=== PATIENT | male | born 1945 | race Caucasian/White ===

== ENCOUNTER 2017-02-02 14:52 | Inpatient (IN) | payer MEDICARE ==
[~2017-02-02] VITALS: Ht 185.4 cm; Wt 97.5 kg
[~2017-02-02 14:52] MED LIST: ASCORBIC ACID500 MG PO; CELEXA40 MG PO; FLOMAX0.4 MG PO; GLUCOSAMINE & C1 CAP PO; LEVAQUIN PREMI750 MG IV; LEVAQUIN750 MG PO; MULTI-DAY VITAM1 TAB PO; PRILOSEC20 MG PO; TRANXENE T-TAB7.5 MG PO; VITAMIN B-1250 MCG PO; ZESTORETIC 20/21 TAB PO; ZOCOR40 MG PO
[2017-02-02 16:45] LABS: BASOPHILS 0 % (0-2); EOSINOPHILS 1.3 % (0-7); HEMATOCRIT 33.7 % (42.0-54.0); HEMOGLOBIN 10.9 g/dL (13.5-17.5); LYMPHOCYTES 17.3 % (15-50); MCH 28.2 pg (26.0-34.0); MCHC 32.3 g/dL (31.0-37.0); MCV 87.1 fL (80.0-100.0); MONOCYTES 7.1 % (2-11); NEUTROPHILS 74.3 % (40-80); PLATELET COUNT 201 10x3/uL (130-400); RBC 3.87 10x6/uL (4.20-6.10); RDW 13.3 % (11.5-14.5); WBC 5.5 10x3/uL (4.8-10.8)
[2017-02-02 16:57] LABS: APTT 25.6 SECONDS (22.8-39.4); INR 0.93 (0.85-1.17); PROTIME 12.3 SECONDS (11.6-15.0)
[2017-02-02 17:00] LABS: ALBUMIN 3.2 g/dL (3.4-5.0); ANION GAP 12.7 mmol/L (8-16); BILIRUBIN - TOTAL 0.26 mg/dL (0.2-1.3); CALCIUM 8.7 mg/dL (8.5-10.1); CARBON DIOXIDE 25.6 mmol/L (21.0-32.0); CREATININE - SERUM 1.7 mg/dL (0.6-1.3); POTASSIUM - SERUM 4.3 mmol/L (3.5-5.1); PROTEIN - SERUM 6.5 g/dL (6.4-8.2)
--- NOTE | 2017-02-02 18:40 | NUR ---
RECEIVED TO ROOM 2231 FROM ER VIA STRETCHER. TRANSFERRED TO BED PER NURSES AND CNAs.
[2017-02-02 19:00] VITALS: BP 134/80
[2017-02-02 20:20] VITALS: BP 134/80; BMI 28.4
[2017-02-02] MEDS ORDERED: FISH OIL 1,0001 CA1 PO (20:47)
[2017-02-03 04:00] VITALS: BP 152/87
--- NOTE | 2017-02-03 07:05 | NUR ---
PT REC'D FROM [facility]. RESTING IN BED WATCHING TV. AAOX4. L LEG SHORTENED AND EXTERNALLY ROTATED. RATING CURRENT PAIN IN L HIP 4/10. LUNG SOUNDS CLEAR AND EQUAL BILAT. BED LOW, CALL LIGHT IN REACH, DENIES NEEDS. CPOC.
[2017-02-03 08:22] VITALS: BP 147/81
--- NOTE | 2017-02-03 08:30 | NUR ---
PRN PAIN MEDICATION ADMINISTERED PER PT COMPLAINTS OF 6/10 L HIP PAIN. WILL REASSSESS. BRAVO CATHETER DRAINING CLEAR, YELLOW, URINE TO GRAVITY. BED LOW, CALL LIGHT IN REACH, DENIES NEEDS. CPOC.
--- NOTE | 2017-02-03 10:41 | NUR ---
SPOKE WITH DR. NEELY ON PHONE ABOUT PT SURGERY SCHEDULE. STATED IT WOULD BE TOMORROW, AND THAT HE TOLD THE ER THAT TO BEGIN WITH. AT BEDSIDE AND UPDATE PROVIDED.
--- NOTE | 2017-02-03 12:32 | NUR ---
PT AOX4 RESP EVEN AND NONLABORED IV TO LEFT FOREARM PATENT AND INTACT. PT HERE FOR LEFT HIP FRACTURE REPAIR AND TREATMENT FOR THIS VISIT. URINARY BRAVO PATENT AND INTACT. FAMILY AT BEDSIDE. SRX2 CALL LIGHT WITHIN REACH WILL CONTINUE TO MONITOR
--- NOTE | 2017-02-03 12:35 | NUR ---
PRN PAIN MEDICATION ADMINISTERED PER PT COMPLAINTS OF 5/10 L HIP PAIN. WILL REASSESS. REPOSITIONED UP IN BED. BED LOW, CALL LIGTH IN REACH, FAMILY AT BEDSIDE. CPOC.
[2017-02-03 14:04] VITALS: BP 150/80
[2017-02-03 16:45] VITALS: BP 170/87
--- NOTE | 2017-02-03 18:03 | NUR ---
CONSENTS DISCUSSED AND SIGNED WITH PT. NO QUESTIONS OR CONCERNS VOICED AT THIS TIME.
[2017-02-03 20:22] VITALS: BP 157/72
--- NOTE | 2017-02-03 21:36 | NUR ---
PT C/O LEFT HIP PAIN RATING 9/10 ON PAIN SCALE WAS MEDICATED WITH DILAUDID 1 MG PER ORDERS. C/L IN REACH AT BEDSIDE.
--- NOTE | 2017-02-03 22:32 | NUR ---
PATIENT RESTING IN BED WITH NO VISIBLE SIGNS OF DISTRESS. BED IN LOWEST POSITION AND CALL LIGHT WITHIN REACH.
[2017-02-04] VITALS: BP 141/83
[2017-02-04 04:00] VITALS: BP 162/87
[2017-02-04 06:19] LABS: BASOPHILS 0.2 % (0-2); EOSINOPHILS 3.4 % (0-7); HEMATOCRIT 34.9 % (42.0-54.0); HEMOGLOBIN 11.6 g/dL (13.5-17.5); IMMATURE GRANULOCYTES 0.2 % (0-5); MCH 28.9 pg (26.0-34.0); MCHC 33.2 g/dL (31.0-37.0); MCV 86.8 fL (80.0-100.0); MEAN PLATELET VOLUME 9.4 fL (7.4-10.4); MONOCYTES 10.8 % (2-11); NEUTROPHILS 68.4 % (40-80); PLATELET COUNT 199 10x3/uL (130-400); RBC 4.02 10x6/uL (4.20-6.10); RDW 13.4 % (11.5-14.5); WBC 5.4 10x3/uL (4.8-10.8)
[2017-02-04 06:37] LABS: INR 1.07 (0.85-1.17); PROTIME 13.7 SECONDS (11.6-15.0)
[2017-02-04 06:42] LABS: ALBUMIN 2.9 g/dL (3.4-5.0); ANION GAP 12.7 mmol/L (8-16); BILIRUBIN - TOTAL 0.71 mg/dL (0.2-1.3); CALCIUM 8.4 mg/dL (8.5-10.1); CARBON DIOXIDE 26.2 mmol/L (21.0-32.0); CREATININE - SERUM 1.5 mg/dL (0.6-1.3); POTASSIUM - SERUM 3.9 mmol/L (3.5-5.1); PROTEIN - SERUM 6.6 g/dL (6.4-8.2)
--- NOTE | 2017-02-04 07:45 | NUR ---
PT ASSESSMENT COMPLETE AWAKE AND ALERT ORNETED X 3 LUNGS CLAER BILAT. NOTED HIP FX WITH ORDERS FOR OR TODAY WITH DR NEELY REMAINS NPO AT THIS TIME. FAMILY AT SIDE HAS SHELLY NOTED PATENT TO CLEAR YELLOW URINE.
[2017-02-04 08:44] VITALS: BP 161/85
[2017-02-04 12:00] VITALS: BP 152/74
--- NOTE | 2017-02-04 13:26 | NUR ---
PT SEEN FOR SUPERVISOR HAND SILVERING NOTE. NPO FOR SURGERY TO LEFT HIP. PEDAL PULSE PRESENT. FAMILY AT BEDSIDE
[2017-02-04 13:53] VITALS: Ht 185.4 cm; Wt 97.5 kg
--- NOTE | 2017-02-04 15:25 | NUR ---
GROOMING SALON MANAGER INITIATED EARLIER THIS SHIFT FOR PAIN CONTROL. PT WITH NO ACUTE DISTRESS NOTED AT THIS TIME PT AWAITING TIME FOR OR.
[2017-02-04 16:56] VITALS: BP 164/82
--- NOTE | 2017-02-04 17:53 | NUR ---
PT TO OR AT THIS TIME. VIA BED WITH OR TEAM. PREOPPED PER ORDER.
[2017-02-04 19:58] VITALS: BP 156/93
--- NOTE | 2017-02-04 20:00 | NUR ---
PATIENT RECEIVED TO ROOM. ALERT AND CONFUSED. COMPLAINTS OF PAIN TO LEFT HIP. BOAT PERSON RESTARTED ORDERED. PATIENT DEMONSTRATES PROPER USE. VSS. NO SIGNS OF DISTRESS NOTED. DENIES ANY NEEDS AT THIS TIME. BED LOW. CALL LIGHT IN REACH
--- NOTE | 2017-02-05 02:00 | NUR ---
PT IN BED WITH NO DISTRESS. RESPIRATIONS EVEN AND UNLABORED. SIDE RAILS X 2. BED LOW. CALL LIGHT IN REACH.
--- NOTE | 2017-02-05 04:00 | NUR ---
NO DISTRESS NOTED. AGREE WITH BACK WEDGER ASSESSMENT.
[2017-02-05 05:55] LABS: BASOPHILS 0.1 % (0-2); EOSINOPHILS 0.8 % (0-7); HEMATOCRIT 36.2 % (42.0-54.0); HEMOGLOBIN 11.7 g/dL (13.5-17.5); IMMATURE GRANULOCYTES 0.2 % (0-5); LYMPHOCYTES 10.2 % (15-50); MCH 28.4 pg (26.0-34.0); MCHC 32.3 g/dL (31.0-37.0); MCV 87.9 fL (80.0-100.0); MEAN PLATELET VOLUME 9.8 fL (7.4-10.4); MONOCYTES 10.7 % (2-11); PLATELET COUNT 214 10x3/uL (130-400); RBC 4.12 10x6/uL (4.20-6.10); RDW 13.3 % (11.5-14.5)
[2017-02-05 06:09] LABS: WBC 10.1 10x3/uL (4.8-10.8)
[2017-02-05 06:26] LABS: ALBUMIN 2.8 g/dL (3.4-5.0); ANION GAP 14.9 mmol/L (8-16); BILIRUBIN - TOTAL 0.71 mg/dL (0.2-1.3); CALCIUM 8.3 mg/dL (8.5-10.1); CARBON DIOXIDE 24.4 mmol/L (21.0-32.0); CREATININE - SERUM 1.8 mg/dL (0.6-1.3); POTASSIUM - SERUM 4.3 mmol/L (3.5-5.1); PROTEIN - SERUM 6.8 g/dL (6.4-8.2)
--- NOTE | 2017-02-05 07:40 | NUR ---
PT ASSESSMENT COMPLETE AWAKE AND ALERT ORINETD X 3 WITH SOME NOTED CONFUSION AT TIMES REGUARDING SITUATION. BLAMES IT ON POST ANESTHESIA. DRESSING INTACT CLEAN AND DRY TO LEFT HIP PAIN CONTROLLED WITH DILAUDID ETYMOLOGY PROFESSOR. CALL LIGHT IN REACH SIDE RAILS UP X 2 HAS BED ALARM ON AND FUNCTIONING
--- NOTE | 2017-02-05 08:29 | NUR ---
Patient Name: MY GUERRERO Admission Status: ER Accout number: [id number] Admission Date: 02-02-2017 : 1945 Admission Diagnosis: Attending: STACEY Current LOS: 3 Anticipated DC Date: 02-07-2017 Planned Disposition: Home with Home Health Primary Insurance: [facility] Discharge Planning Comments: CM MET WITH PATIENT REGARDING D/C NEEDS AND PLANS. PATIENT STATED HE LIVES WITH HIS ([facility]) AND SHE WILL DRIVE HIM HOME AT DISCHARGE. PATIENT STATED HE HAS 2 STEPS W/O RAILS TO ENTER HOME AND NO STAIRS INSIDE HOME. PATIENT IS INDEPENDENT WITH HIS CARE AND HAS A SHOWER CHAIR AT HOME BUT STATED HE HAS ACCESS TO ALL EQUIPMENT NEEDED. PATIENTS PCP IS DR. COLLINS AND PHARMACY IS [facility]. PATIENT WILL NEED A SKILLED FACILITY AT DISCHARGE. CM WILL CONTINUE TO FOLLOW PATIENT WITH D/C NEEDS AND PLANS. PCP DR. COLLINS [facility]) [phone] Truck Driver Instructor: Gina Flower Is the patient Alert and Oriented? Yes 0 * How many steps to enter\exit or inside your home? 2 0 * PCP DR. COLLINS 0 * Pharmacy [facility] 0 * Preadmission Environment Home with Family 0 * ADLs Independent 0 * Equipment Shower Chair 0 * Other Equipment PATIENT HAS ACCESS TO ALL EQUIPMENT NEEDED 0 * List name and contact numbers for known caregivers / representatives who currently or will assist patient after discharge: GLORIA (-[facility] [employer]) [phone] * Community resources currently utilized None 0 * Additional services required to return to the preadmission environment? Yes 0 * Can the patient safely return to the preadmission environment? Yes 0 * Has this patient been hospitalized within the prior 30 days at any hospital? No 0 Grand Total: 0
[2017-02-05 08:52] VITALS: BP 123/81
--- NOTE | 2017-02-05 09:05 | NUR ---
PATIENT ALERT IN HIGH YOUSSEF POSITION. RESPIRATIONS EVEN AND UNLABORED. SIDE RAILS UP X2. BED IN LOW POSITION. CALL LIGHT IN REACH.
[2017-02-05 13:45] VITALS: BP 104/56
--- NOTE | 2017-02-05 15:09 | NUR ---
Rehab Note- Acute Rehab Prescreen order received. The patient has [facility] insurance and requires a PreAuth for acute rehab stay. Called [facility] to begin PreAuth process. Reference #[id number]. Will await decision from [facility] for possible acute rehab stay. Thank you for this referral! Deborah Caldwell RN Clinical Liaison, [facility] Rehab/[place]
[2017-02-05 16:55] VITALS: BP 113/69
--- NOTE | 2017-02-05 17:14 | NUR ---
OT NOTE: PT COMPLETED BED MOB WITH MOD/MAX A. PT COMPLETED BUE AROM FOR INCREASED STRENGTH. PT COMPLETED GROOMING WITH SET UP. THANK YOU, MILAGROS KOCH/Carson
--- NOTE | 2017-02-06 02:00 | NUR ---
PT IN BED WITH NO DISTRESS. RESPIRATIONS EVEN AND UNLABORED. SIDE RAILS X 2. BED LOW. CALL LIGHT IN REACH.
[2017-02-06 04:00] VITALS: BP 135/77
[2017-02-06 05:34] LABS: BASOPHILS 0.1 % (0-2); EOSINOPHILS 1.1 % (0-7); IMMATURE GRANULOCYTES 0.2 % (0-5); LYMPHOCYTES 10.9 % (15-50); MCH 29.3 pg (26.0-34.0); MCHC 34.3 g/dL (31.0-37.0); MEAN PLATELET VOLUME 9.7 fL (7.4-10.4); NEUTROPHILS 75.7 % (40-80); PLATELET COUNT 173 10x3/uL (130-400); RDW 13.1 % (11.5-14.5); WBC 9.5 10x3/uL (4.8-10.8)
[2017-02-06 06:06] LABS: ALBUMIN 2.3 g/dL (3.4-5.0); ANION GAP 13.5 mmol/L (8-16); BILIRUBIN - TOTAL 0.56 mg/dL (0.2-1.3); CALCIUM 7.6 mg/dL (8.5-10.1); CARBON DIOXIDE 24.3 mmol/L (21.0-32.0); POTASSIUM - SERUM 3.8 mmol/L (3.5-5.1); PROTEIN - SERUM 6.1 g/dL (6.4-8.2)
[2017-02-06 06:13] LABS: HEMATOCRIT 27.1 % (42.0-54.0); HEMOGLOBIN 9.3 g/dL (13.5-17.5); MCV 85.5 fL (80.0-100.0); RBC 3.17 10x6/uL (4.20-6.10)
[2017-02-06 09:01] VITALS: BP 126/78
[2017-02-06 12:00] VITALS: BP 126/66
--- NOTE | 2017-02-06 13:29 | OP ---
PATIENT NAME: MY GUERRERO MEDICAL RECORD: [id number] :44 LOCATION:[id number] ADMISSION DATE:02/02/17 SURGEON: ENMA NEELY MD DATE OF OPERATION: 02/04/2017 PREOPERATIVE DIAGNOSIS: Displaced left femoral neck fracture. POSTOPERATIVE DIAGNOSIS: Displaced left femoral neck fracture. PROCEDURE: Bipolar endoprosthetic replacement for displaced left femoral neck fracture. SURGEON: Enma Neely MD ANESTHESIA: General. INTRAOPERATIVE COMPLICATIONS: None. SUMMARY OF PATHOLOGIC FINDINGS: The patient had a displaced left femoral neck fracture. Good bone quality and stalk, very large individual. ESTIMATED BLOOD LOSS APPROXIMATELY: 100 cc. IMPLANTS USED: Accolade II stem with a -3 V40 femoral 26 inner head with a 54 outside dimension head, bipolar. OPERATIVE SUMMARY IN DETAIL: After obtaining the appropriate preoperative orthopedic surgery consent as well as anesthetic consultation, evaluation and clearance, the patient was brought to the operating room and placed on the operating table in supine position. After general laryngeal mask airway was administered, the patient was placed in a right lateral decubitus position. All pressure points were well padded to include down leg peroneal pad as well as axillary roll. The patient was held firmly to the operating table using the vacuum pack suction system. Left lower extremity and hip were then prepped and draped in a routine sterile fashion. Curvilinear incision was made over the greater trochanter, taken down along the fibers of the IT band which was split in line with the fibers of the IT band to reveal gluteus medius and minimus attachment to the greater trochanter. These were reflected anteriorly. The hip capsule was split in a T-type fashion and saved for later reapproximation. The fracture hematoma was evacuated. The femoral neck cut was made using the femoral neck cutting guide for the Accolade stem. This was followed by extraction of the femoral head. The femoral head was extracted. The acetabulum was swept and cleared of all fragments and debris. It had excellent cartilage. Next, attention was turned to the proximal femur. Serial and sequential reaming and broaching were done for a size 6 Accolade TMZF coated stem. This was tamped into place on the [place] taper. Trials were undertaken and it was felt that -3 26 on a 54 head was the most appropriate. This was tamped into place on the [place] taper and reduced with good reduction. Intraoperative radiograph showed good position and placement of all components. Hip capsule was then closed with #2 Ethibond followed by transosseous reapproximation of the gluteus medius and minimus through the greater trochanter using #5 Ethibond. Lastly, the IT band was closed with #2 Ethibond. This was then followed by #1 Vicryl, 2-0 Vicryl and skin reji. Sterile dressings were applied. The patient was awakened, taken to recovery in stable condition. All final needle and sponge counts were correct. OPERATIVE REPORT [id number] MY GUERRERO TRANSINT:[id number] Voice Confirmation ID: [id number] DOCUMENT ID: [id number] FLORINDA BLANCA, ENMA JAIN at 1329 CC: [id number] DICTATION DATE: 02/04/171957 AIRPLANE ELECTRICIAN: 02/05/17 0630 ADM IN [facility] [address] [place] [address]
[2017-02-06 14:45] LABS: COLOR YELLOW (YELLOW)
[2017-02-06 14:46] LABS: APPEARANCE SLT CLOUDY (CLEAR)
[2017-02-06 14:47] LABS: BILIRUBIN NEGATIVE (NEGATIVE); GLUCOSE NEGATIVE (NEGATIVE); KETONE NEGATIVE (NEGATIVE); LEUKOCYTE ESTERASE NEGATIVE (NEGATIVE); NITRITE NEGATIVE (NEGATIVE); PROTEIN TRACE mg/dL (NEGATIVE); SPECIFIC GRAVITY 1.015 (1.005-1.020); UROBILINOGEN NORMAL (NORMAL)
[2017-02-06 14:48] LABS: AMORPHOUS SEDIMENT <1+ /lpf (NONE SEEN); BACTERIA MODERATE /hpf (NONE SEEN); RED CELLS - URINE 0-5 /hpf (0-5); WHITE CELLS - URINE 0-5 /hpf (0-5)
--- NOTE | 2017-02-06 15:00 | NUR ---
Rehab Note- Received information from ZORAN Fuentes that the patient's was requesting the patient go to [facility] for therapy after discharge from acute hospital. Contacted Teodora Hess CM for [facility] and informed her that there would not be a need for review for IRF stay due to the 's request of [facility] that is a SNF. Thank you for this referral! Deborah Caldwell RN Clinical Liaison, [facility] Rehab/[place]
--- NOTE | 2017-02-06 15:39 | NUR ---
PATIENT HAD A MEDIUM AMOUNT OF STOOL OUTPUT, 6 HARD BALLS ABOUT THE SIZE OF 1 INCH IN DIAMETER EACH.
[2017-02-06 17:56] VITALS: BP 146/81
--- NOTE | 2017-02-06 18:05 | NUR ---
OT NOTE: PT COMPLETED POSITIONING WITH MIN A. PT COMPLETED BUE GROSS MOTOR AXS FOR INCREASED I. THANK YOU, MILAGROS KOCH/Carson
[2017-02-06 19:00] VITALS: BP 150/75
[2017-02-07] VITALS (10 sets, daily range): BP systolic 126–157; BP diastolic 68–80
--- NOTE | 2017-02-07 04:13 | NUR ---
2000)REC'D. IN BED CONFUSED TO PLACE AND TIME.DRSG. LEFT HIP DRY AND INTACT.FOOT WARM PEDAL PULSE PRESENT.BRAVO PATENT AND DRAING JORDY COLORED URINE.MONICA MAT IN PLACE FOR SAFETY.2299)BED ALARM SOUNDING NURSE ENTERED RM.PT.ON BOTH KNEES ON FLOOR.HEAD /TOE ASSESSMENT DONE NO SKINBREAKAGE OBSERVED.STOOD ASSISTED TO BED.MAXIMUM ASSIST.NO INCREASE IN PAIN SHORTENING OR EXTERNAL ROTATION NOTED.HOUSESUPERVISOR NOTIFIED, AND DR NEELY. NO NEW ORDERS REC.D. ATTEMPTED TO NOTIFY PER PROTOCOL, NO ANSWER AT [phone]. STATES NOT A WORKING NUMBER.
[2017-02-07 06:37] LABS: BASOPHILS 0 % (0-2); EOSINOPHILS 1.3 % (0-7); HEMATOCRIT 24.4 % (42.0-54.0); HEMOGLOBIN 8.3 g/dL (13.5-17.5); IMMATURE GRANULOCYTES 0.1 % (0-5); LYMPHOCYTES 10.4 % (15-50); MCH 28.7 pg (26.0-34.0); MCV 84.4 fL (80.0-100.0); MEAN PLATELET VOLUME 9.9 fL (7.4-10.4); MONOCYTES 11.5 % (2-11); NEUTROPHILS 76.7 % (40-80); PLATELET COUNT 211 10x3/uL (130-400); RBC 2.89 10x6/uL (4.20-6.10); WBC 9.2 10x3/uL (4.8-10.8)
--- NOTE | 2017-02-07 06:41 | NUR ---
EYES CLOSED RESPIRATIONS WITH EASE AND UNLABORED.
[2017-02-07 07:14] LABS: ALBUMIN 2.2 g/dL (3.4-5.0); ALKALINE PHOSPHATASE 105 U/L (46-116); CALC OSMOLALITY 273 mosm/kg (275-300); CALCIUM 7.9 mg/dL (8.5-10.1); CARBON DIOXIDE 23.8 mmol/L (21.0-32.0); CHLORIDE - SERUM 98 mmol/L (98-107); CREATINE KINASE 425 UL (21-232); CREATININE - SERUM 2.4 mg/dL (0.6-1.3); GLUCOSE 104 mg/dL (74-106); POTASSIUM - SERUM 3.8 mmol/L (3.5-5.1); PROTEIN - SERUM 6.2 g/dL (6.4-8.2); SODIUM 132 mmol/L (136-145); THYROID STIMULATING HORMONE 1.68 uIU/mL (0.36-3.74); UREA NITROGEN 39 mg/dL (7-18); URIC ACID 8.4 mg/dL (2.6-7.2); eGFR NON AFRICAN AMERICAN 28 mL/min (90-120)
[2017-02-07 07:16] LABS: ALT (SGPT) 36 U/L (10-68); CKMB 4.2 U/L (0.0-3.6)
--- NOTE | 2017-02-07 09:28 | NUR ---
CLAMPED BRAVO CATHETER
--- NOTE | 2017-02-07 11:00 | NUR ---
CM REASSESSEMENT NOTE: PATIENT HAS BEEN ACCEPTED TO [facility] (SKILLED BED) AND SHOULD GO TODAY BY AMBULANCE. PATIENT IS REC. 1 UNIT OF BLOOD BEFORE DISCHARGE.
--- NOTE | 2017-02-07 11:35 | NUR ---
PT VERBALIZED THE FEELING OF NEEDING TO URINATE. UNCLAMPED CATHETER. ALLOWING TO DRAIN, THEN WILL CLAMP.
[2017-02-07] MEDS ORDERED: PERCOCET 10/3251 TA1 PO (13:37)
[2017-02-07] MEDS ORDERED: ELIQUIS2.5 MG PO (13:37)
--- NOTE | 2017-02-07 14:10 | NUR ---
DISCHARGE INSTRUCTIONS COMPLETED WITH PATIENT. D/C IV WITH CATHETER INTACT. HELD PRESSURE UNTIL BLEEDING STOPPED.
--- NOTE | 2017-02-07 14:15 | NUR ---
STAFF MEMBER FROM [facility] HERE TO GET PATIENT. PAGED SUSY, PHYSICAL THERAPIST TO ASSIST PATIENT GETTING INTO THE WHEELCHAIR. ADMINISTERED PAIN MEDICATION. GAVE PACKET CONTAINING PAIN MEDICATION PERSCRIPTION AND DISCHARGE INSTRUCTIONS TO STAFF MEMBER FROM [facility]. SUSY, PHYSICAL THERAPIST ASSISTED PATIENT GETTING INTO THE WHEELCHAIR. UNCLAMPED BRAVO CATHETER. PATIENT LEFT.
--- NOTE | 2017-02-07 14:20 | NUR ---
CM REASSESSMENT NOTE: PATIENT IS DISCHARGING TO [facility] AND IS GOING BY FACILITY [facility] TO A SKILLED BED. NURSE MADE SURE PATIENTS TEETH WAS IN A CUP IN THE BAG SENT AND CM ALSO WITNESSED THEM IN THE BAG. PATIENTS WAS CALLED TO NOTIFY PATIENT WAS ON HIS WAY TO [facility].
--- NOTE | 2017-02-07 14:34 | NUR ---
CALLED REPORT TO JONNIE NURSE AT [facility].
== END 2017-02-07 14:15 | DRG 470 ==
LOC: D.ER 14:52 → D.MS 17:08
PROVIDERS: Emergency Medicine; Family Medicine Adult Medicine; Internal Medicine Nephrology; ADMIT Orthopaedic Surgery
PROC: 0SRS0JZ Replacement of Left Hip Joint, Femoral Surface with Synthetic Substitute, Open Approach (ICD-10-PCS; principal; 2017-02-04 16:00)
DX: S72.002A Fracture of unspecified part of neck of left femur, initial encounter for closed fracture (principal); N18.4 Chronic kidney disease, stage 4 (severe); N17.9 Acute kidney failure, unspecified; W11.XXXA Fall on and from ladder, initial encounter; F31.9 Bipolar disorder, unspecified; I12.9 Hypertensive chronic kidney disease with stage 1 through stage 4 chronic kidney disease, or unspecified chronic kidney disease; D63.1 Anemia in chronic kidney disease; K42.9 Umbilical hernia without obstruction or gangrene

== ENCOUNTER 2017-02-09 16:49 | Emergency (ER) | payer MEDICARE ==
[2017-02-04 13:53] VITALS: BMI 28.3
[~2017-02-09 16:49] MED LIST changes: +ELIQUIS2.5 MG PO; +FISH OIL 1,0001 CA1 PO; +PERCOCET 10/3251 TA1 PO
[2017-02-09 17:37] LABS: BASOPHILS 0.2 % (0-2); EOSINOPHILS 2.7 % (0-7); HEMATOCRIT 25.9 % (42.0-54.0); HEMOGLOBIN 8.6 g/dL (13.5-17.5); IMMATURE GRANULOCYTES 0.3 % (0-5); LYMPHOCYTES 13.2 % (15-50); MCH 28.8 pg (26.0-34.0); MCHC 33.2 g/dL (31.0-37.0); MCV 86.6 fL (80.0-100.0); MEAN PLATELET VOLUME 8.7 fL (7.4-10.4); MONOCYTES 13.6 % (2-11); RBC 2.99 10x6/uL (4.20-6.10); RDW 13.2 % (11.5-14.5); WBC 5.9 10x3/uL (4.8-10.8)
[2017-02-09 17:39] LABS: PLATELET COUNT 292 10x3/uL (130-400)
[2017-02-09 17:51] LABS: ANION GAP 13.3 mmol/L (8-16); CALCIUM 8.3 mg/dL (8.5-10.1); CARBON DIOXIDE 26.5 mmol/L (21.0-32.0); CREATININE - SERUM 1.8 mg/dL (0.6-1.3); POTASSIUM - SERUM 3.8 mmol/L (3.5-5.1)
== END 2017-02-09 18:38 | disposition home or self-care (01) ==
LOC: D.ER 16:49
PROVIDERS: Emergency Medicine
DX: S71.002D Unspecified open wound, left hip, subsequent encounter (principal); X58.XXXD Exposure to other specified factors, subsequent encounter; N40.0 Benign prostatic hyperplasia without lower urinary tract symptoms; I10 Essential (primary) hypertension